=== PATIENT | male | born 1935 | race Caucasian/White ===

== ENCOUNTER 2016-02-08 20:40 | Inpatient (IN) | payer OTHER, MEDICAID ==
[~2016-02-08] VITALS: Ht 185.4 cm; Wt 74.3 kg
[~2016-02-08 20:40] MED LIST: AMOX-263 PO; DONE10TA37 PO; DOX100T PO; ERGO2000 PO
[2016-02-08 21:37] LABS: Basophils # (auto) 0 uL; Basophils % (auto) 0.3 % (0.0-2.0); Eosinophils # (auto) 0 uL; Eosinophils % (auto) 0.5 % (0.0-7.0); Hematocrit 37.6 % (41.0-53.0); Hemoglobin 12.2 g/dL (13.5-17.5); Lymphocytes # (auto) 1.7 uL; Lymphocytes % (auto) 23.5 % (10.0-50.0); Mean Corpuscular Hemoglobin 30.5 pg (28.0-32.0); Mean Corpuscular Hgb Conc. 32.4 g/dL (32.0-36.0); Mean Platelet Volume 8.4 fL (7.4-10.4); Monocytes # (auto) 0.7 uL; Neutrophils % (auto) 66.7 % (37.0-80.0); Platelet Count (auto) 175 10^3/uL (140-450); Red Cell Distribution Width 16.6 % (11.6-16.0); White Blood Cell 7.4 10^3/uL (4.4-10.8)
[2016-02-08 22:00] LABS: Albumin 3.3 g/dL (3.4-5.0); BUN/Creatinine Ratio 23.6; Bilirubin, Total 0.4 mg/dL (0.2-1.0); Calcium 8.9 mg/dL (8.5-10.1); Potassium 3.7 mmol/L (3.5-5.1); Total Protein 6.7 g/dL (6.4-8.2)
[2016-02-08 22:08] LABS: B-Type Natriuretic Peptide 210.69 pg/mL (0-100); Temperature: 22.3 C (20.0-25.0)
[2016-02-08] MEDS ORDERED: ENOXAPARIN SOD 100 MG/1 ML SYRINGE SC ONE (23:00)
[2016-02-09] MEDS ORDERED: ONDANSETRON HCL 4 MG/2 ML VIAL IV PRN (01:45)
[2016-02-09] MEDS ORDERED: cloNIDine HCL 0.1 MG TAB PO PRN (01:45)
[2016-02-09] MEDS ORDERED: LISINOPRIL 10 MG TAB PO ONE (01:45)
[2016-02-09] MEDS ORDERED: MORPHINE SULF INJ 2 MG/ML SYRINGE 1ML IV PRN (01:45)
[2016-02-09] MEDS ORDERED: HYDROcodone-ACET 5/325MG TAB PO PRN (01:45)
[2016-02-09] MEDS ORDERED: NITROGLYCERIN 0.4 MG SL TAB SL PRN (01:45)
[2016-02-09] MEDS ORDERED: ACETAMINOPHEN 325 MG TAB PO PRN (01:45)
[2016-02-09 09:00] VITALS: BP 123/53
[2016-02-09 10:00] VITALS: BP 123/53
[2016-02-09] MEDS ORDERED: ASPirin 81 mg TAB PO SCH (10:00)
[2016-02-09] MEDS: LISINOPRIL 10 MG TAB PO SCH (10:28)
[2016-02-09] MEDS: ASPirin 81 mg TAB PO SCH (10:28)
[2016-02-09] MEDS: FAMOTIDINE 20 MG TAB PO SCH ×2 (10:28→22:34)
[2016-02-09] MEDS: ENOXAPARIN SOD 100 MG/1 ML SYRINGE SC SCH ×2 (10:28→22:35)
[2016-02-09 13:00] VITALS: BP 114/64
[2016-02-09 16:00] VITALS: BP 142/71
[2016-02-09 22:00] VITALS: BP 112/63
[2016-02-09] MEDS: DONEPEZIL HYDROCHLORIDE 5 MG TAB PO SCH (22:34)
[2016-02-10 05:25] VITALS: BP 114/70
[2016-02-10 06:47] LABS: Basophils # (auto) 0 uL; Basophils % (auto) 0.4 % (0.0-2.0); Eosinophils # (auto) 0.1 uL; Eosinophils % (auto) 0.8 % (0.0-7.0); Hematocrit 36.2 % (41.0-53.0); Hemoglobin 11.7 g/dL (13.5-17.5); Lymphocytes % (auto) 30.3 % (10.0-50.0); Mean Corpuscular Hemoglobin 30.4 pg (28.0-32.0); Mean Corpuscular Hgb Conc. 32.4 g/dL (32.0-36.0); Mean Corpuscular Volume 93.8 fL (80.0-100.0); Mean Platelet Volume 8.9 fL (7.4-10.4); Monocytes # (auto) 0.5 uL; Monocytes % (auto) 7.6 % (0.0-12.0); Neutrophils # (auto) 4.1 uL; Neutrophils % (auto) 60.9 % (37.0-80.0); Platelet Count (auto) 181 10^3/uL (140-450); Red Cell Distribution Width 16.6 % (11.6-16.0); White Blood Cell 6.8 10^3/uL (4.4-10.8)
[2016-02-10 07:07] LABS: Potassium 3.7 mmol/L (3.5-5.1)
[2016-02-10 07:18] LABS: Albumin 3.2 g/dL (3.4-5.0); BUN/Creatinine Ratio 19.9; Bilirubin, Total 0.6 mg/dL (0.2-1.0); Calcium 8.5 mg/dL (8.5-10.1); Total Protein 6.5 g/dL (6.4-8.2)
[2016-02-10 09:00] VITALS: BP 113/51
[2016-02-10] MEDS: ASPirin 81 mg TAB PO SCH (10:23)
[2016-02-10] MEDS: FAMOTIDINE 20 MG TAB PO SCH ×2 (10:24→22:04)
[2016-02-10] MEDS: LISINOPRIL 10 MG TAB PO SCH (10:29)
[2016-02-10] MEDS: ENOXAPARIN SOD 100 MG/1 ML SYRINGE SC SCH ×2 (10:30→22:04)
[2016-02-10 22:00] VITALS: BP 123/62
[2016-02-10] MEDS: DONEPEZIL HYDROCHLORIDE 5 MG TAB PO SCH (22:04)
[2016-02-11 05:00] VITALS: BP 122/53
[2016-02-11 09:00] VITALS: BP 131/70
[2016-02-11] MEDS: FAMOTIDINE 20 MG TAB PO SCH ×2 (10:10→22:05)
[2016-02-11] MEDS: ASPirin 81 mg TAB PO SCH (10:10)
[2016-02-11] MEDS: LISINOPRIL 10 MG TAB PO SCH (10:11)
[2016-02-11] MEDS: ENOXAPARIN SOD 100 MG/1 ML SYRINGE SC SCH ×2 (10:11→22:05)
[2016-02-11 13:00] VITALS: BP 136/78
[2016-02-11 16:28] VITALS: BP 139/70
[2016-02-11 21:43] VITALS: BP 91/71
[2016-02-11] MEDS: DONEPEZIL HYDROCHLORIDE 5 MG TAB PO SCH (22:05)
[2016-02-12 05:00] VITALS: BP 108/53
[2016-02-12 09:00] VITALS: BP 126/67
[2016-02-12] MEDS: ASPirin 81 mg TAB PO SCH (09:36)
[2016-02-12] MEDS: FAMOTIDINE 20 MG TAB PO SCH (09:36)
[2016-02-12] MEDS: LISINOPRIL 10 MG TAB PO SCH (09:36)
[2016-02-12] MEDS: ENOXAPARIN SOD 100 MG/1 ML SYRINGE SC SCH (09:37)
[2016-02-12 11:07] VITALS: BP 126/67
== END 2016-02-12 12:20 | disposition home or self-care (01) | DRG 291 ==
LOC: EDBD 20:40 → ER 20:45 → TELE 20:46 → TELE-WESTW 02-09 08:18 → WEST WING 02-12 08:41
PROVIDERS: ADMIT Internal Medicine; ATTEND Internal Medicine
DX: I13.0 Hypertensive heart and chronic kidney disease with heart failure and stage 1 through stage 4 chronic kidney disease, or unspecified chronic kidney disease (principal); J96.00 Acute respiratory failure, unspecified whether with hypoxia or hypercapnia; N17.9 Acute kidney failure, unspecified; J98.11 Atelectasis; E44.0 Moderate protein-calorie malnutrition; I50.1 Left ventricular failure, unspecified; D63.8 Anemia in other chronic diseases classified elsewhere; F02.80 Dementia in other diseases classified elsewhere, unspecified severity, without behavioral disturbance, psychotic disturbance, mood disturbance, and anxiety; G30.9 Alzheimer's disease, unspecified; F17.210 Nicotine dependence, cigarettes, uncomplicated; I49.3 Ventricular premature depolarization; I50.9 Heart failure, unspecified; G40.909 Epilepsy, unspecified, not intractable, without status epilepticus; I25.10 Atherosclerotic heart disease of native coronary artery without angina pectoris; I25.2 Old myocardial infarction; N18.3 Chronic kidney disease, stage 3 (moderate); Z68.26 Body mass index [BMI] 26.0-26.9, adult; Z98.890 Other specified postprocedural states; Z68.21 Body mass index [BMI] 21.0-21.9, adult
CPT/HCPCS: 36415; 70450; 71010; 80053; 83880; 84484; 85025; 85379; 93005; 93306; 93970; 94761; 96372; 97001; 97110; 97116; 97530